=== PATIENT | female | born 1995 | race Caucasian/White ===

== ENCOUNTER 2020-08-22 18:44 | Emergency (ER) | payer OTHER, SELFPAY ==
--- NOTE | ~2020-08-22 | US_ITS ---
EXAMINATION: US OB <=14 wk fetus w TV DATE: 08/22/2020 21:01 INDICATION: Pelvic pain with positive hCG test TECHNIQUE: Real-time pelvic ultrasound utilizing both a transvaginal and transabdominal probe was pe rformed. The interpreting radiologist was not present for the study. COMPARISON: None. FINDINGS: The uterus measures 9.8 x 5.4 x 6.9 cm. The endometrial complex measures approximately 15 mm in thick ness. No evident intrauterine gestational sac. Suggestion of a section scar along the anteri or wall of the lower uterine segment. 6 mm nabothian cyst at the cervix. The left and right ovaries a re not visualized. No abnormal mass identified at the left or right adnexa. There is no free fluid in the pelvis. IMPRESSION: 1. No evident intrauterine gestational sac. Differential would include early, failed or nonvisualized ectopic . Reviewed, dictated and finalized at location A. IMPRESSION: 1. No evident intrauterine gestational sac. Differential would include early, f jenna or nonvisualized ectopic .
[2020-08-22 18:46] VITALS: BP 145/79; PULSE 90; RESP 20; TEMP 36.7; O2SAT 100
[2020-08-22] MEDS: SODIUM CHLORIDE 0.9% IV 1,000 ML 999 ML IV CONT ×2 (19:23→21:45)
[2020-08-22 19:25] LABS: Add Urine Microscopic? YES; Appearance Urine Clear (Clear); Bilirubin Urine Negative (Negative); Blood Urine Negative (Negative); Color Urine Straw (Yellow); Glucose Urine UA 3+ mg/dL (Negative); Ketones Urine Negative (Negative); Leukocyte Esterase Ur Negative LEU/UL (Negative); Nitrate Urine Negative (Negative); Protein Urine Negative (Negative); RBC Urine 0-2 /hpf (0-2); Squamous Epithelial Cell Urine Rare /hpf (Few); Urobilinogen Urine Negative mg/dL (<2.0); WBC Urine 0-3 /hpf
--- NOTE | 2020-08-22 19:28 | PC.NURSE ---
Patient's bedside glucose is 320, ERP notified.
[2020-08-22 19:29] LABS: Glucose Point of Care 320 mg/dl (65-105)
--- NOTE | 2020-08-22 19:29 | ED.GENADULT ---
HPI - General Adult General Chief complaint: Unspecified Stated complaint: , cramping Time Seen by Provider: 08/22/20 19:06 History of Present Illness HPI narrative: Patient is a 24-year-old female presents the emergency department with chief complaint of abdominal cramping and . The patient reports that this is her fifth reports her last menstrual period was 10 June. Patient denies any vaginal bleeding reports that she has history of diabetes and has not been compliant with taking her insulin or taking regular Accu-Cheks. Patient states that she has an appointment with an COMPUTER ENGINEER in a few weeks. The patient denies nausea vomiting reports that she has been urinating quite frequently Related Data Home Medications Medication Instructions Recorded Confirmed No Home Medications 08/22/20 08/22/20 Allergies Allergy/AdvReac Type Severity Reaction Status Date / Time No Known Allergies Allergy Unknown Verified 08/22/20 18:49 Review of Systems Review of Systems: Narrative: A 10 system review of systems was completed on the patient and is negative except for what is stated in the HPI. Nursing and ancillary documentation was reviewed. [facility] Social History Social History Gender identity (if verbalized by the patient): Female Comments Past medical history significant for insulin-dependent diabetes Social history the patient denies illicit drug use Exam Narrative: Exam Narrative: GENERAL: Well-appearing, well-nourished, and in no acute distress. HEAD: Normocephalic, atraumatic. EYES: PERRLA and EOMI. ENT: Nares clear, no rhinorrhea or epistaxis. Mucous membranes moist. NECK: Supple. CHEST: Clear to auscultation. No respiratory distress. HEART: Regular rate and rhythm. No murmur heard. Normal peripheral pulses. ABDOMEN: Soft, nontender, nondistended, normal active bowel sounds. EXTREMITIES: Normal range of motion. No edema. SKIN: Warm, dry, no rash. NEURO: No focal deficits. Alert and oriented x3. PSYCH: Normal mood and affect. Course Vital Signs Vital signs: Vital Signs Temperature 36.7 C 08/22/20 18:46 Pulse Rate 90 08/22/20 18:46 Respiratory Rate 20 08/22/20 18:46 Blood Pressure 145/79 H 08/22/20 18:46 Pulse Oximetry 100 08/22/20 18:46 Temperature 36.7 C 08/22/20 18:46 Pulse Rate 70 08/22/20 21:47 Respiratory Rate 18 08/22/20 21:47 Blood Pressure 121/79 08/22/20 21:47 Pulse Oximetry 100 08/22/20 21:47 Medical Decision Making Vital Signs Vital Signs: Vital Signs Temperature 36.7 C 08/22/20 18:46 Pulse Rate 90 08/22/20 18:46 Respiratory Rate 20 08/22/20 18:46 Blood Pressure 145/79 H 08/22/20 18:46 Pulse Oximetry 100 08/22/20 18:46 Temperature 36.7 C 08/22/20 18:46 Pulse Rate 70 08/22/20 21:47 Respiratory Rate 18 08/22/20 21:47 Blood Pressure 121/79 08/22/20 21:47 Pulse Oximetry 100 08/22/20 21:47 Lab Data Result diagrams: 08/22/20 19:26 08/22/20 19:26 Labs: Lab Results 08/22/20 08/22/20 08/22/20 Range/Units 19:16 19:26 19:26 WBC (4.5-10.0) K/mm3 RBC (4.2-5.4) M/mm3 Hgb (12.0-15.0) g/dL Hct (37.0-47.0) % MCV (80-100) fl MCH (26-34) pg MCHC (32-36) g/dl RDW (11.5-14.5) % Plt Count (150-375) k/mm3 MPV (7.4-10.4) fl Immature Gran % (Auto) (0-0.5) % Neut % (Auto) (45.5-73.1) % Lymph % (Auto) (18.3-44.2) % [place] % (Auto) (2.6-8.5) % Eos % (Auto) (0-4.4) % Baso % (Auto) (0.2-1.2) % Lymph # (Auto) (0.9-3.2) K/mm3 [place] # (Auto) (0.1-0.6) K/mm3 Eos # (Auto) (0-0.3) K/mm3 Baso # (Auto) (0.0-0.1) K/mm3 Abs Immat Gran (auto) (0.00-0.031) K/mm3 Absolute Neuts (auto) (1.3-6.7) K/mm3 Absolute Nucleated RBC (0.0-0.012) K/mm3 Nucleated RBC % (0.0-0.2) % Sodium 139 (137-145) mmol/L Pot
[2020-08-22 19:35] LABS: Basophils Percent Auto 0.3 % (0.2-1.2); Eosinophils Absolute Auto 0.2 K/mm3 (0-0.3); Eosinophils Percent Auto 2.4 % (0-4.4); Hematocrit 38.6 % (37.0-47.0); Hemoglobin 12.3 g/dL (12.0-15.0); Immature Granulocyte Absolute 0.01 K/mm3 (0.00-0.031); Immature Granulocyte Percent A 0.1 % (0-0.5); Lymphocytes Absolute Auto 2.96 K/mm3 (0.9-3.2); Lymphocytes Percent Auto 39.4 % (18.3-44.2); Mean Corpuscular HGB Conc 31.9 g/dl (32-36); Mean Corpuscular Hemoglobin 26.2 pg (26-34); Mean Corpuscular Volume 82.1 fl (80-100); Mean Platelet Volume 9.8 fl (7.4-10.4); Monocytes Absolute Auto 0.5 K/mm3 (0.1-0.6); Monocytes Percent Auto 6.7 % (2.6-8.5); Neutrophils Absolute Auto 3.8 K/mm3 (1.3-6.7); Neutrophils Percent Auto 51.1 % (45.5-73.1); Platelet Count Result 265 k/mm3 (150-375); White Blood Count 7.5 K/mm3 (4.5-10.0)
[2020-08-22 19:37] LABS: Specific Grav Ur 1.032 (1.001-1.035)
[2020-08-22 19:43] LABS: Alanine Aminotransferase 16 U/L (4-35); Albumin Level 3.6 g/dL (3.5-5.1); Alkaline Phosphatase 100 U/L (38-126); Anion Gap 10 mmol/L (8-16); Aspartate Amino Transferase 23 U/L (14-36); Bilirubin,Total 0.3 mg/dL (0.2-1.3); Blood Urea Nitrogen 13 mg/dL (7-17); Calcium 8.8 mg/dL (8.4-10.2); Carbon Dioxide 20 mmol/L (22-30); Chloride 109 mmol/L (98-107); Estimated CRCL calculation 162 ml/min; Estimated Glomerular Filt Rate > 60; Glucose 339 mg/dL (65-105); Potassium 4.1 mmol/L (3.4-5.0); Sodium 139 mmol/L (137-145)
--- NOTE | 2020-08-22 20:46 | PC.NURSE ---
Patient taken to US via stretcher.
[2020-08-22 21:36] LABS: Glucose Point of Care 286 mg/dl (65-105)
[2020-08-22 21:47] VITALS: BP 121/79; PULSE 70; RESP 18; O2SAT 100
--- NOTE | 2020-08-22 23:04 | PC.NURSE ---
Patient's bedside glucose is 235.
[2020-08-22 23:06] LABS: Glucose Point of Care 235 mg/dl (65-105)
[2020-08-22 23:12] VITALS: BP 106/51; PULSE 72; RESP 20; TEMP 36.6; O2SAT 100
== END 2020-08-22 23:14 | disposition home or self-care (01) ==
PROVIDERS: Emergency Medicine Emergency Medical Services; Emergency Provider Emergency Medicine
DX: O26.891 Other specified pregnancy related conditions, first trimester (principal); R10.9 Unspecified abdominal pain; O24.311 Unspecified pre-existing diabetes mellitus in pregnancy, first trimester; E11.65 Type 2 diabetes mellitus with hyperglycemia; Z91.14 Patient's other noncompliance with medication regimen; Z3A.00 Weeks of gestation of pregnancy not specified
CPT/HCPCS: 36415; 76801; 76817; 80053; 81001; 81025; 81479; 82948; 84702; 85025; 85461; 86850; 86870; 86880; 86900; 86901; 86902; 86971; 96360; 96361; 99284; J7030

== ENCOUNTER 2020-08-24 12:50 | Outpatient (CLI) | payer OTHER, SELFPAY ==
[2020-08-24 13:41] LABS: Beta HCG Quantitative 211.51 mIU/ML
== END 2020-08-24 12:51 | disposition home or self-care (01) ==
PROVIDERS: Visit Provider Obstetrics & Gynecology
DX: O20.0 Threatened abortion (principal)
CPT/HCPCS: 36415; 84702

== ENCOUNTER 2020-09-08 20:33 | Emergency (ER) | payer OTHER, SELFPAY ==
--- NOTE | ~2020-09-08 | US_ITS ---
EXAMINATION: US OB <=14 wk fetus w TV EXAM DATE: 09/08/2020 23:24 INDICATION: Vaginal bleeding and . 1st trimester. TECHNIQUE: Pelvic obstetrical transabdominal and transvaginal sonogram was performed by a technradha carlson. There are multiple grayscale and Doppler images available for interpretation. Comparison is made to prior examination from 08/22/2020. FINDINGS: Uterus measures 9.6 x 5.3 x 7.2 cm. There is intrauterine gestation sac with mean sac diam eter 6 mm corresponding to estimated gestational age 5 weeks 2 days, estimated date of confinement . Yolk sac is identified. There is no sonographic evidence of subchorionic hemorrhage. No f etal pole identified at this time. Right ovary not identified. In the left adnexal region there was a focal area measured at 8.2 x 5.8 x 4.6 cm which appear to be c ontained complex cystic region, area of loculated fluid but also regions of soft tissue causing some shadowing. Assuming fluid is contained, appearance is most consistent with teratoma, but other ovaria n histology, or fluid fluid with bowel and side not excludable. This region was not specifically iden tified on ultrasound from 08/22/2020. IMPRESSION: 1. Early intrauterine gestation sac. Could not confirm pole at this time. 2. Complex cystic left adnexal 8 cm region, appearance most consistent with teratoma. Other histolog y not entirely excludable. Reviewed, dictated and finalized at location A. IMPRESSION: 1. Early intrauterine gestation sac. Could not confirm pole at this time . 2. Complex cystic left adnexal 8 cm region, appearance most consistent with te ratoma. Other histology not entirely excludable.
[2020-09-08 20:35] VITALS: BP 147/97; PULSE 100; RESP 18; TEMP 36.7; O2SAT 99
--- NOTE | 2020-09-08 20:58 | PC.NURSE ---
Attempt to collect labs x3 between this RN and MAYA Kiser. Sticks unsuccessful. Awaiting room availability.
--- NOTE | 2020-09-08 21:09 | ED.GENADULT ---
HPI - General Adult General Chief complaint: Vaginal Bleeding Stated complaint: bleeding, Time Seen by Provider: 09/08/20 21:05 Source: RN notes reviewed History of Present Illness HPI narrative: Patient presents emergency department from home for vaginal bleeding. Patient G5, P2 approximately 7 weeks states he began to have some vaginal spotting last night became heavier today. States is associated with lower abdominal cramping. Patient is currently followed by Dr. Champagne. She denies any fevers or chills, chest pain shortness of breath or any other symptoms. States she has taken no medication for the symptoms. Patient states she does have a history of 2 previous miscarriages. Patient did have ultrasound earlier in August that did not show a definitive intrauterine has not had an ultrasound since that Related Data Home Medications Medication Instructions Recorded Confirmed fluoxetine mg 09/08/20 09/08/20 insulin glargine [Lantus Solostar SUBCUT 09/08/20 U-100 Insulin] insulin lispro [Humalog KwikPen unit SUBCUT 09/08/20 Insulin] metoclopramide HCl 09/08/20 Allergies Allergy/AdvReac Type Severity Reaction Status Date / Time No Known Allergies Allergy Unknown Verified 09/08/20 20:40 Review of Systems Review of Systems: Narrative: Gen.: Denies fevers or chills ENT: Denies congestion Respiratory: Denies shortness of breath or cough CV: Denies chest pain or palpitations GI: Reports lower abdominal cramping denies any nausea or vomiting see HPI Musculoskeletal: Denies back pain or muscle pain Neuro: Denies numbness, tingling, weakness or focal weakness Skin: Denies rash Except as documented, all other systems reviewed and negative [facility] Past Medical History Medical History (Updated 09/08/20 @ 23:25 by Pete Coffman DO) Patient denies significant medical history Social History Social History (Updated 09/08/20 @ 21:09 by Pete Coffman DO) Smoking status: Never smoker Gender identity (if verbalized by the patient): Female Exam Narrative: Exam Narrative: APPEARANCE: No acute distress, nontoxic, resting in bed HEENT: Normocephalic, atraumatic, OMM RESPIRATORY: No respiratory distress, clear to auscultation bilaterally with no rhonchi wheezing or rales CARDIOVASCULAR: RRR s murmur ABDOMINAL: Soft nondistended mild tenderness right lower quadrant left lower quadrant no tenderness right upper quadrant left upper quadrant no rebound or guarding MUSCULOSKELETAl: Moves all extremities. No clubbing, cyanosis or edema. NEURO: Awake and alert. Following commands, speech normal, no focal deficits SKIN:: Warm, dry. Normal Color PSYCHIATRIC: Normal affect/mood Course Course Emergency Course: Reviewed old records patient with O+ blood type from 08/22/2020 Discussed with patient ultrasound states she does have a history of a dermoid cyst Discussed Dr. Champagne presentation work-up agrees with plan for discharge to follow-up as an outpatient Discussed with patient results of workup and diagnosis. Discussed need for follow-up with primary care, proper use of medication, and reasons to return to the emergency department. Patient understands and agrees to current treatment plan Vital Signs Vital signs: Vital Signs Temperature 98.1 F 09/08/20 20:35 Pulse Rate 100 09/08/20 20:35 Respiratory Rate 18 09/08/20 20:35 Blood Pressure 147/97 H 09/08/20 20:35 Pulse Oximetry 99 09/08/20 20:35 Temperature 98.1 F 09/08/20 20:35 Pulse Rate 100 09/08/20 20:35 Respiratory Rate 18 09/08/20 20:35 Blood Pressure 147/97 H 09/08/20 20:35 Pulse Oximetry 99 09/08/20 20:35 Medical Decision Making Vital Signs Vital Signs: Vital Signs Temperature 98.1 F 09/08/20 20:35 Pulse Rate 100 09/08/20 20:35 Respiratory Rate 18 09/08/20 20:35 Blood Pressure 147/97 H 09/08/20 20:35 Pulse Oximetry 99 09/08/20 20:35 Temperature 98.1 F 09/08/20 20:3
[2020-09-08] MEDS: ACETAMINOPHEN 500 MG TABLET 1000 MG PO (21:20)
[2020-09-08 21:57] LABS: Basophils Percent Auto 0.4 % (0.2-1.2); Eosinophils Absolute Auto 0.2 K/mm3 (0-0.3); Eosinophils Percent Auto 1.6 % (0-4.4); Hematocrit 41.8 % (37.0-47.0); Hemoglobin 13.8 g/dL (12.0-15.0); Immature Granulocyte Absolute 0.04 K/mm3 (0.00-0.031); Immature Granulocyte Percent A 0.4 % (0-0.5); Lymphocytes Absolute Auto 3.26 K/mm3 (0.9-3.2); Lymphocytes Percent Auto 31.9 % (18.3-44.2); Mean Corpuscular Volume 78.7 fl (80-100); Mean Platelet Volume 9.4 fl (7.4-10.4); Monocytes Absolute Auto 0.6 K/mm3 (0.1-0.6); Monocytes Percent Auto 5.5 % (2.6-8.5); Neutrophils Absolute Auto 6.2 K/mm3 (1.3-6.7); Neutrophils Percent Auto 60.2 % (45.5-73.1); Platelet Count Result 331 k/mm3 (150-375); Red Blood Count 5.31 M/mm3 (4.2-5.4); Red Cell Distribution Width 15.4 % (11.5-14.5); White Blood Count 10.2 K/mm3 (4.5-10.0)
[2020-09-08 23:53] VITALS: BP 140/89; PULSE 88; RESP 18; O2SAT 99
== END 2020-09-08 23:49 | disposition home or self-care (01) ==
PROVIDERS: Emergency Provider Emergency Medicine
DX: O20.0 Threatened abortion (principal); Z3A.01 Less than 8 weeks gestation of pregnancy; O24.911 Unspecified diabetes mellitus in pregnancy, first trimester; Z79.4 Long term (current) use of insulin
CPT/HCPCS: 36415; 76801; 76817; 84702; 85025; 99284; A9270

== ENCOUNTER 2020-10-16 08:37 | Outpatient (RCR) | payer OTHER, SELFPAY ==
[2020-10-14 16:35] LABS: Beta HCG Quantitative 54.31 mIU/ML
[2020-10-16 09:33] LABS: Beta HCG Quantitative 42.96 mIU/ML
== END 2021-01-12 23:59 | disposition home or self-care (01) ==
LOC: ANHLAB 08:37
PROVIDERS: PCP Obstetrics & Gynecology; Visit Provider Obstetrics & Gynecology
DX: O20.0 Threatened abortion (principal); Z3A.01 Less than 8 weeks gestation of pregnancy
CPT/HCPCS: 36415; 84702

== ENCOUNTER → 2020-10-23 01:03 | Outpatient (CLI) | payer OTHER, SELFPAY ==
[2020-10-23 17:52] LABS: SARS-CoV-2 RNA PCR Positive
== END ==
PROVIDERS: PCP Obstetrics & Gynecology; Visit Provider Obstetrics & Gynecology
DX: U07.1 COVID-19 (principal)
CPT/HCPCS: C9803; U0003; U0005

== ENCOUNTER 2020-10-27 00:43 | Day surgery (SDC) | payer OTHER, SELFPAY ==
--- NOTE | 2020-10-27 07:16 | SUR.PREOP ---
0716- PRE DR. LAM, PT DOES NOT NEED A BMP DAY OF SURGERY. RECHECK BLOOD SUGAR IN PRE OP.
--- NOTE | 2020-10-27 08:43 | WPDHPUPDATE1 ---
History and Physical Update Update Date/Time: 10/27/20 08:43 History and Physical has been reviewed, including an updated exam of the patient. There are NO changes in the patient's condition. Risks, benefits, and alternatives have been discussed and questions answered. Patient agrees to proceed with procedure.
--- NOTE | 2020-10-27 08:47 | WPDANESEPPF ---
Anes - Initial Pre Proc Eval Procedure: Operation Date: 10/27/20 09:30 Proposed Procedures p Suction Dilation and Curettage - Elham Champagne MD Date/Time: 10/27/20 08:47 Surgeon: Elham Champagne MD Pre Op Diagnosis: incomplete miscarriage Patient Data Age: 24 Gender: F Height: Weight: Allergies Allergy/AdvReac Type Severity Reaction Status Date / Time No Known Allergies Allergy Unknown Verified 09/08/20 20:40 Home Medications Medication Instructions Recorded Confirmed Type fluoxetine 20 mg PO DAILY 09/08/20 10/25/20 History insulin glargine [Lantus Solostar 20 unit SUBCUT HS 09/08/20 10/25/20 History U-100 Insulin] insulin lispro [Humalog KwikPen 6 unit SUBCUT TIDWMEAL 09/08/20 10/25/20 History Insulin] metoclopramide HCl 10 mg PO TID PRN 09/08/20 10/25/20 History oxycodone-acetaminophen 1 tablet PO Q4H PRN 10/25/20 10/25/20 History Patient hx anesthesia problems: none Family hx anesthesia problems: none PMF Past Medical History Medical History Diabetes Obesity Smoker Social History Social History (Updated 09/08/20 @ 21:09 by Pete Coffman DO) Smoking packs per day: 0.5 Smoking cigarettes per day: 10.0 Years smoked: 1 Smoking pack-years: 0.50 Smoking status: Current some day smoker Tobacco type: e-cigarettes/vaping Alcohol intake: never Last use: 2018 Living arrangements: with family Gender identity (if verbalized by the patient): Female Sexual Orientation (if Verbalized by the Patient): Straight or Heterosexual Spiritual care concerns: No Anes - Eval Final PreProcedure Day of Procedure 10/27/20 08:47 Patient weight: obese Heart: regular rate and rhythm Lungs: clear to auscultation and normal air movement Airway: Mallampati scale class II Neurological: alert and oriented Last oral intake: >/= 8 hours ASA classification: III Emergent: no Anesthetic plan: proceed Anesthesia type and monitoring: general GIVS Informed Consent: The patient's anesthetic plan and its attendant risks and benefits were discussed with the patient/family/POA. Questions were solicited and answers provided to the satisfaction of the patient/family/POA.
[2020-10-27] MEDS: LACTATED RINGERS 1,000 ML 30 ML IV CONT (09:15)
[2020-10-27] MEDS: ACETAMINOPHEN 500 MG TABLET 1000 MG PO (09:18)
--- NOTE | 2020-10-27 09:19 | SUR.PREOP ---
0919- REVIEWED PT BLOOD SUGAR OF [address] LAM. HE IS AWARE, NO ORDERS GIVEN
[2020-10-27 09:21] VITALS: BP 124/75; PULSE 80; TEMP 35.9; O2SAT 98
[2020-10-27 09:51] VITALS: BP 146/86; PULSE 77; RESP 16; O2SAT 100
--- NOTE | 2020-10-27 09:53 | P.OP_ITS ---
Procedure Note - Detailed Date of Procedure 10/27/20 Pre-op Diagnosis incomplete miscarriage Post-op Diagnosis same Procedure Performed Suction D&C Surgeon Elham Champagne MD Anesthesia MAC Indications missed Findings normal-appearing vulva vagina and cervix to. Moderate amount of products conception within the uterus. 8 cm uterus Description of Procedure the patient was taken the operating room. She was prepped and draped in dorsal lithotomy position after induction of mac anesthesia. A speculum was placed in the vagina. Cervix grasped with tenaculum. The cervix was dilated to about 1 cm Using Valenzuela dilators. A 8. Kuwaiti curved curette was used to perform suction D&C. The curette was introduced and vacuum was applied. The curette was removed over all surfaces of the intrauterine cavity multiple times. This was done until all the surfaces were clear and had the familiar grainy texture they can be felt through the instrument. A sharp curette was then used to curettage all the surfaces. The suction cup was then reapplied 1 more time to remove any debris. The instruments were removed. The speculum and tenaculum were removed. The patient tolerated the procedure well. She was taken recovery room stable condition. Estimated Blood Loss 50 Drains No Packing No Pathology yes Complications No immediate complications Condition stable Disposition PACU
[2020-10-27] MEDS: INSULIN HUMAN REGULAR (*BKC) 100 UNITS/ML SUB-Q (10:04)
[2020-10-27 10:06] VITALS: BP 132/81; PULSE 71; O2SAT 100
[2020-10-27 10:33] VITALS: BP 131/76; PULSE 70; O2SAT 98
[2020-10-27] MEDS: ONDANSETRON INJ 4 MG/2 ML VIAL IV PUSH (10:47)
[2020-10-27 11:03] VITALS: BP 114/62; PULSE 70; O2SAT 97
--- NOTE | 2020-10-27 11:10 | SUR.PHASEII ---
1110- SPOKE WITH PT ABOUT ELEVATED BLOOD SUGAR. RECHECKED IN OUT PT, 343. PT STATED SHE WILL CHECK HER BLOOD SUGAR AFTER SHE EATS TODAY AND TREAT NEEDED. STATED SHE WILL MAKE A APPOINTMENT WITH ENDOCRINE MD SOON.
[2020-10-27 11:27] LABS: Glucose Point of Care 343 mg/dl (65-105)
[2020-10-27 11:27] LABS: Glucose Point of Care 366 mg/dl (65-105)
== END 2020-10-27 11:35 | disposition home or self-care (01) ==
PROVIDERS: Visit Provider Obstetrics & Gynecology
PROC: (CPT 59812; principal; 2020-10-27 09:30)
DX: O03.4 Incomplete spontaneous abortion without complication (principal); E11.9 Type 2 diabetes mellitus without complications; Z79.4 Long term (current) use of insulin; F17.290 Nicotine dependence, other tobacco product, uncomplicated
CPT/HCPCS: 59812; 82948; 88305; A9270; J1815; J2250; J2405; J2704; J3010; J7120

== ENCOUNTER 2021-01-17 12:20 | Outpatient (CLI) | payer MEDICAID, SELFPAY ==
[2021-01-17 13:20] LABS: Anion Gap 9 mmol/L (8-16); Blood Urea Nitrogen 9 mg/dL (7-17); Calcium 9.2 mg/dL (8.4-10.2); Carbon Dioxide 24 mmol/L (22-30); Chloride 103 mmol/L (98-107); Estimated Glomerular Filt Rate > 60; Glucose 343 mg/dL (65-110); Potassium 3.9 mmol/L (3.4-5.0); Sodium 136 mmol/L (137-145)
--- NOTE | 2021-01-17 14:30 | ECG_ITS ---
Measurements Intervals [place] Rate: 65 P: -7 [place]: 168 QRS: 42 QRSD: 105 T: 19 QT: 385 QTc: 403 Interpretive Statements SINUS RHYTHM BORDERLINE R WAVE PROGRESSION, ANTERIOR LEADS BORDERLINE T WAVE ABNORMALITY- ANTERIOR LEADS BORDERLINE ECG Electronically Signed On 01-17-2021 12:44:27 CLINICAL BIOCHEMICAL GENETICIST by Jem Forde D.O.
== END 2021-01-17 12:21 | disposition home or self-care (01) ==
PROVIDERS: Anesthesiology; PCP Physician Assistant; Visit Provider Obstetrics & Gynecology
DX: Z01.818 Encounter for other preprocedural examination (principal); E11.9 Type 2 diabetes mellitus without complications
CPT/HCPCS: 36415; 80048; 93005

== ENCOUNTER 2021-01-19 01:10 | Day surgery (SDC) | payer MEDICAID, SELFPAY ==
[2021-01-14 14:47] VITALS: BMI 43.9
--- NOTE | 2021-01-14 15:01 | PC.NURSE ---
Report to the Outpatient Waiting Room, entrance under the green pavilion located off [facility], at time 6:00 on date 01/19/21. OR Time: 7:30. - You and your visitor will be asked a series of questions to screen for COVID 19 for your protection. - A mask is required within the hospital. - Only one visitor is allowed at this time. Patient visitors will be guided where to wait when not with patient. Preoperative COVID Testing Requirements: No COVID Test needed if: (proof is required; if not received patient will have Rapid Test prior to entry) - Patient has received COVID Vaccine at least 14 days prior to procedure date or - Patient has positive COVID test result within last 90 days of surgery date. COVID Test needed if above criteria is not met If not COVID vaccinated a COVID test must be conducted within 72 hours of surgery and patient is asked to isolate self from time of testing until procedure. You will go to the [facility] for your COVID testing. The [facility] is located at the corner of [address] [facility]. You will only be called if COVID results are positive and your surgeon may reschedule your elective surgery date. Patients may have clear liquids (water, carbonated beverages, clear teas, apple juice) until 3 hours prior to surgery with a maximum of 20 ounces. - No food from midnight until time of surgery - Infants may have breast milk until 4 hours before surgery, infant formula 6 hours prior to surgery. - Children will be allowed to drink immediately following surgery. If applicable, please bring a bottle or sippy cup to assist with drinking. Juice, water, soda, and popsicles are readily available. For infants on formula, please bring formula the day of surgery. Pacifiers are allowed. Take the following medications with a SIP of water the morning of surgery: FLUOXETINE, PAIN PILL (IF NEEDED) Medications to discontinue per physician: VITAMINS/SUPPLEMENTS Date to take last dose: 3 DAYS PRE-OP Please no make-up, nail armenian, hairspray, perfume, deodorant, or body powder the day of surgery. No jewelry (including any body piercings) or valuables the day of surgery, leave them at home. Please take a shower or bath the night before, or the morning of, surgery with an antibacterial soap. Wear comfortable, loose fitting clothing. Children are encouraged to wear pajamas. - Jewelry must be removed prior to entering the operating room. Rings and piercings that are not removed may be cut off. - The hospital will not accept responsibility for valuables. - Please leave all valuables, including medications, at home the day of surgery. If you are going home after surgery, a licensed truck driver must drive you home. - NO public transportation without another adult. - We recommend that an adult stay with you for 24 hours following discharge. - We also recommend that you do not drive, make important decision, drink alcoholic beverages, or take any drugs that were not prescribed by your health care provider for at least 24 hours after your discharge time. For Pediatric surgeries, we recommend two adults accompany the child home (only one inside the building at this time). Follow any additional instructions given to you from your surgeon. Telephone instructions given to JASPREET MCKEE and asked if any additional questions and then verbalized understanding. Patient advised to call surgeon office or pre surgery nurse liaison [phone] if any additional questions.
[2021-01-19] VITALS (11 sets, daily range): BP systolic 96–112; BP diastolic 57–77; PULSE 63–79; RESP 14–20; TEMP 36.2–36.7; O2SAT 92–100
[2021-01-19] MEDS: LACTATED RINGERS 1,000 ML 30 ML IV CONT (06:45)
[2021-01-19] MEDS: KETOROLAC 15 MG/ML VIAL (*BKC) IV PUSH (06:47)
[2021-01-19] MEDS: ACETAMINOPHEN 500 MG TABLET 1000 MG PO (06:47)
[2021-01-19 06:50] LABS: Glucose Point of Care 296 mg/dl (65-105)
--- NOTE | 2021-01-19 07:18 | WPDHPUPDATE1 ---
History and Physical Update Update Date/Time: 01/19/21 07:18 History and Physical has been reviewed, including an updated exam of the patient. There are NO changes in the patient's condition. Risks, benefits, and alternatives have been discussed and questions answered. Patient agrees to proceed with procedure.
--- NOTE | 2021-01-19 07:19 | P.PNAN_ITS ---
Anes - Initial Pre Proc Eval Procedure: Operation Date: 01/19/21 07:30 Proposed Procedures p Laparoscopic Left Ovarian Cystectomy - Elham Champagne MD Date/Time: 01/19/21 07:19 Surgeon: Elham Champagne MD Pre Op Diagnosis: dermoid cyst Patient Data Age: 25 Gender: F Height: 1.57 m Weight: 108.8 kg Last Vital Signs Temp 36.2 C L 01/19/21 06:29 Pulse 78 01/19/21 06:29 Resp 18 01/19/21 06:29 BP 100/75 01/19/21 06:29 Pulse Ox 99 01/19/21 06:29 Allergies Allergy/AdvReac Type Severity Reaction Status Date / Time No Known Allergies Allergy Unknown Verified 01/19/21 06:34 Home Medications Medication Instructions Recorded Confirmed Type fluoxetine 20 mg PO DAILY 09/08/20 01/19/21 History insulin glargine [Lantus Solostar 30 unit SUBCUT HS 09/08/20 01/19/21 History U-100 Insulin] insulin lispro [Humalog KwikPen 6 - 8 unit SUBCUT TIDWMEAL 09/08/20 01/19/21 History Insulin] metoclopramide HCl 10 mg PO TID PRN 09/08/20 01/19/21 History oxycodone-acetaminophen 1 tablet PO Q4H PRN 10/25/20 01/19/21 History cholecalciferol (vitamin D3) 25 mcg PO DAILY 01/14/21 01/19/21 History [Vitamin D3] multivitamin 1 tablet PO DAILY 01/14/21 01/19/21 History Laboratory Tests 01/19/21 06:44 POC Capillary Glucose 296 mg/dl H mg/dl (65-105) Patient hx anesthesia problems: none Family hx anesthesia problems: none Results Review: All pre-operative results and documents have been reviewed as part of the pre-operative evaluation. [facility], [facility] Past Medical History Medical History Diabetes Obesity Smoker Social History Social History Smoking packs per day: 1 Smoking cigarettes per day: 20.0 Years smoked: 3 Smoking pack-years: 3.00 Smoking status: Former smoker Tobacco type: e-cigarettes/vaping Smoking end date: 03/12/18 Alcohol intake: current Alcohol use details: 2-3/MONTH Substance use: current Substance use type: marijuana Other substance usage details: SMOKE Last use: 01/13/21 Living arrangements: with family Gender identity (if verbalized by the patient): Female Sexual Orientation (if Verbalized by the Patient): Straight or Heterosexual Spiritual care concerns: No Anes - Eval Final PreProcedure Day of Procedure 01/19/21 07:19 Patient weight: morbidly obese Heart: regular rate and rhythm Lungs: decreased breath sounds Airway: Mallampati scale class II Neurological: alert and oriented Last oral intake: >/= 8 hours ASA classification: III Emergent: no Anesthetic plan: proceed Anesthesia type and monitoring: general ETT and standard monitoring Results Review: All pre-operative results and documents have been reviewed as part of the pre-operative evaluation. Informed Consent: The patient's anesthetic plan and its attendant risks and benefits were discussed with the patient/family/POA. Questions were solicited and answers provided to the satisfaction of the patient/family/POA.
[2021-01-19] MEDS: INSULIN HUMAN REGULAR (*BKC) 100 UNITS/ML 10 UNITS SUB-Q (08:32)
--- NOTE | 2021-01-19 08:50 | W.PM.PROC2 ---
Procedure Note - Detailed Date of Procedure 01/19/21 Pre-op Diagnosis dermoid cyst Post-op Diagnosis same Procedure Performed Laparoscopic left salpingo-oophorectomy. Surgeon Elham Champagne MD Anesthesia general Indications Pelvic pain Findings 8 cm left dermoid cyst with closely associated fallopian tube,, cyst under significant tension distinct area of ovary not appreciable Description of Procedure The patient was taken to the operating room. She was prepped and draped in the dorsal lithotomy position after induction general anesthesia. A 5 mm incision was made with a scalpel on the abdominal skin in the left upper quadrant of the abdomen. A 5 mm trocar was inserted into the intra-abdominal cavity under direct visualization the scope. In the same fashion a11 mm left lower quadrant trocar was inserted and a 5 mm infraumbilical trocar was inserted. The infundibulopelvic ligament on the right was isolated, cauterized and transected with LigaSure cautery. The para ovarian mesosalpinx lateral to the fallopian tube was cauterized transected in stepwise fashion around to the uterine cornua. The tube at the cornua was cauterized transected with LigaSure cautery. The suspensory ligament ovaries cauterized transected with LigaSure cautery. At that time the ovary was completely amputated and was placed in endobag and taken at the left lower quadrant trocar site. The cyst was punctured while in the bag and the fluid was prevented from home return to the abdomen. The opening of the bag was outside the abdominal wall. The pelvis was irrigated. The pneumoperitoneum was reduced. The trocars were removed. Skin was closed with subcuticular 4 micro. The patient's incisions were covered with Dermabond. She was taken recovery room in stable condition. Sponge lap and needle counts were correct x2. Estimated Blood Loss -5.0 Pathology yes Complications No immediate complications Condition stable Disposition same day
[2021-01-19] MEDS: fentaNYL CITRATE INJ (*CRX) 100 MCG/2 ML VIAL 25 MCG IV PUSH (09:03)
[2021-01-19] MEDS: oxyCODONE HCL (*CRX) 5 MG TAB IR PO (10:00)
[2021-01-19] MEDS: ONDANSETRON INJ 4 MG/2 ML VIAL IV PUSH (10:06)
[2021-01-19] MEDS: SCOPOLAMINE 1.5 MG PATCH TRANSDERM (10:35)
== END 2021-01-19 11:10 | disposition home or self-care (01) ==
PROVIDERS: PCP Physician Assistant; Visit Provider Obstetrics & Gynecology
PROC: (CPT 49320; principal; 2021-01-19 07:30)
DX: D27.1 Benign neoplasm of left ovary (principal); E11.9 Type 2 diabetes mellitus without complications; Z79.4 Long term (current) use of insulin; Z87.891 Personal history of nicotine dependence; F12.90 Cannabis use, unspecified, uncomplicated; E66.01 Morbid (severe) obesity due to excess calories; Z68.41 Body mass index [BMI] 40.0-44.9, adult
CPT/HCPCS: 58661; 82948; 88305; 88307; A9270; J1100; J1815; J1885; J2250; J2270; J2405; J2704; J2710; J3010; J7120

== ENCOUNTER 2021-08-31 22:17 | Emergency (ER) | payer MEDICAID, SELFPAY ==
--- NOTE | ~2021-08-31 | US_ITS ---
EXAMINATION: US pelvic complete w TV DATE: 09/01/2021 03:02 INDICATION: Early . Abdominal cramping. TECHNIQUE: Real-time transabdominal and transvaginal pelvic ultrasound was performed. COMPARISON: None. FINDINGS: TRANSABDOMINAL ULTRASOUND: The uterus measures 9.5 x 5.7 x 6.6 cm. TRANSVAGINAL ULTRASOUND: There is an intrauterine gestational sac with mean diameter of 10 mm, which correlates with an estimated gestational age of 5 weeks and 5 days +/- 4 days. A yolk sac is identifi ed. No pole is identified. There is a nabothian cyst in the cervix. The ovaries are not visuali zed. There is no free fluid in the pelvis. IMPRESSION: 1. Single intrauterine gestation with estimated date of delivery of 04/29/2022. Reviewed, dictated and finalized at location A.
[2021-08-31 22:49] VITALS: BP 139/88; PULSE 90; RESP 18; TEMP 36.4; O2SAT 99
[2021-08-31 23:16] LABS: Basophils Percent Auto 0.5 % (0.2-1.2); Eosinophils Absolute Auto 0.1 K/mm3 (0-0.3); Eosinophils Percent Auto 1.3 % (0-4.4); Hematocrit 44.3 % (37.0-47.0); Hemoglobin 15.5 g/dL (12.0-15.0); Immature Granulocyte Absolute 0.03 K/mm3 (0.00-0.031); Immature Granulocyte Percent A 0.3 % (0-0.5); Lymphocytes Absolute Auto 3.64 K/mm3 (0.9-3.2); Lymphocytes Percent Auto 42.3 % (18.3-44.2); Mean Corpuscular Hemoglobin 30.7 pg (26-34); Mean Corpuscular Volume 87.7 fl (80-100); Mean Platelet Volume 9.6 fl (7.4-10.4); Monocytes Absolute Auto 0.5 K/mm3 (0.1-0.6); Monocytes Percent Auto 5.9 % (2.6-8.5); Neutrophils Absolute Auto 4.3 K/mm3 (1.3-6.7); Neutrophils Percent Auto 49.7 % (45.5-73.1); Platelet Count Result 226 k/mm3 (150-375); Red Blood Count 5.05 M/mm3 (4.2-5.4); Red Cell Distribution Width 13.6 % (11.5-14.5); White Blood Count 8.6 K/mm3 (4.5-10.0)
[2021-08-31 23:17] LABS: Appearance Urine Clear (Clear); Bilirubin Urine Negative (Negative); Blood Urine Negative (Negative); Color Urine Yellow (Yellow); Glucose Urine UA 3+ mg/dL (Negative); Ketones Urine Trace mg/dL (Negative); Leukocyte Esterase Ur Negative LEU/UL (Negative); Nitrate Urine Negative (Negative); Protein Urine Negative (Negative); Specific Grav Ur 1.015 (1.001-1.035); Urobilinogen Urine 0.2 mg/dL (<2.0); pH Urine 5.5 (5.0-9.0)
[2021-08-31 23:23] LABS: Add Urine Microscopic? YES; Bacteria Urine Trace /hpf; Mucus Urine Rare /lpf; Squamous Epithelial Cell Urine Few /hpf (Few)
[2021-08-31 23:29] LABS: Alanine Aminotransferase 38 U/L (6-35); Alkaline Phosphatase 111 U/L (38-126); Anion Gap 9 mmol/L (8-16); Aspartate Amino Transferase 26 U/L (14-36); Bilirubin,Total 0.2 mg/dL (0.2-1.3); Blood Urea Nitrogen 11 mg/dL (7-17); Calcium 9.1 mg/dL (8.4-10.2); Carbon Dioxide 21 mmol/L (22-30); Chloride 104 mmol/L (98-107); Estimated CRCL calculation 203 ml/min; Estimated Glomerular Filt Rate > 60; Glucose 390 mg/dL (65-110); Lipase 69 U/L (23-300); Potassium 3.8 mmol/L (3.4-5.0); Sodium 134 mmol/L (137-145)
[2021-09-01] MEDS: INSULIN ASPART (*BKC) 100 UNITS/ML 10 UNITS SUB-Q (01:51)
--- NOTE | 2021-09-01 03:18 | ED.ABDPAIN ---
HPI - Abdominal Pain General Chief Complaint: Abdominal Pain Stated Complaint: abd cramping, 8 weeks Time Seen by Provider: 09/01/21 00:42 Source: patient Mode of arrival: ambulatory Limitations: no limitations History of Present Illness HPI narrative: 25-year-old female G7, P2 presents today with complaints of abdominal cramping rating pain 7 out of 10. Patient denies any bleeding at this point. Patient states she is about 8 weeks . Patient states she saw her OB not too long ago they did a ultrasound but were unable to confirm IUP. Patient is diabetic. Patient has an appointment with her web site administrator on Sunday concerning her high blood sugars. Related Data Home Medications Medication Instructions Recorded Confirmed fluoxetine 20 mg capsule 20 mg PO DAILY 09/08/20 01/19/21 insulin glargine 100 unit/mL (3 30 unit subcut HS 09/08/20 01/19/21 mL) subcutaneous pen (Lantus Solostar U-100 Insulin) insulin lispro 100 unit/mL 6 - 8 unit subcut TIDWMEAL 09/08/20 01/19/21 subcutaneous pen (Humalog KwikPen (U-100) Insulin) metoclopramide HCl 10 mg tablet 10 mg PO TID PRN Nausea 09/08/20 01/19/21 oxycodone-acetaminophen 10 mg-325 1 tablet PO Q4H PRN Pain 10/25/20 01/19/21 mg tablet cholecalciferol (vitamin D3) 25 25 mcg PO DAILY 01/14/21 01/19/21 mcg (1,000 unit) chewable tablet (Vitamin D3) multivitamin 1 tablet PO DAILY 01/14/21 01/19/21 Allergies Allergy/AdvReac Type Severity Reaction Status Date / Time No Known Allergies Allergy Unknown Verified 01/19/21 06:34 Review of Systems Review of Systems: CONSTITUTIONAL: Denies fever, chills, or sweats. EYES: Denies visual changes, redness, or discharge. ENT: Denies rhinorrhea, congestion, sore throat, or otalgia. CARDIOVASCULAR: Denies chest pain, palpitations, or edema. RESPIRATORY: Denies cough or dyspnea. GASTROINTESTINAL: Abdominal cramping. Denies nausea, vomiting, or diarrhea. GENITOURINARY: Denies dysuria or hematuria. SKIN: Denies rash or itching. MUSCULOSKELETAL: Denies back pain, joint pain, or myalgia. NEUROLOGIC: Denies headache, numbness, dizziness, or weakness. PSYCHIATRIC: Denies anxiety or depression. PMFSH Past Medical History Medical History Diabetes Obesity Smoker Social History Social History Smoking packs per day: 1 Smoking cigarettes per day: 20.0 Years smoked: 3 Smoking pack-years: 3.00 Smoking status: Former smoker Tobacco type: e-cigarettes/vaping Smoking end date: 03/12/18 Alcohol intake: current Alcohol use details: 2-3/MONTH Substance use: current Substance use type: marijuana Other substance usage details: SMOKE Last use: 01/13/21 Gender identity (if verbalized by the patient): Female Sexual Orientation (if Verbalized by the Patient): Straight or Heterosexual Spiritual care concerns: No Exam Narrative: GENERAL: Well-appearing, well-nourished, and in no acute distress. HEAD: Normocephalic, atraumatic. EYES: PERRLA and EOMI. ENT: Nares clear, no rhinorrhea or epistaxis. Mucous membranes moist. Oropharynx without tonsillar hypertrophy exudate or other lesions. Bilateral TMs pearly henry nonbulging NECK: Supple. No adenopathy or masses. No carotid bruits or JVD CHEST: Clear to auscultation. No respiratory distress. No wheezes rales or rhonchi HEART: Regular rate and rhythm. No murmur heard. Normal peripheral pulses. ABDOMEN: Soft, nontender, nondistended, normal active bowel sounds. EXTREMITIES: Normal range of motion. No edema. SKIN: Warm, dry, no rash. NEURO: No focal deficits. Alert and oriented x3. PSYCH: Normal mood and affect. Course Vital Signs Vital signs: Vital Signs Temperature 36.4 C L 08/31/21 22:49 Pulse Rate 90 08/31/21 22:49 Respiratory Rate 18 08/31/21 22:49 Blood Pressure 139/88 08/31/21 22:49 Pulse Oximetry 99 08/31/21 22:49 Oxygen Delivery Room Air 08/31/21 22:
[2021-09-01 04:08] VITALS: BP 119/70; PULSE 83; RESP 16; O2SAT 100
[2021-09-01 04:49] LABS: Glucose Point of Care 236 mg/dl (65-105)
== END 2021-09-01 04:53 | disposition home or self-care (01) ==
PROVIDERS: Emergency Medicine; Emergency Provider Nurse Practitioner Family; PCP Physician Assistant
DX: R10.9 Unspecified abdominal pain (principal); O24.311 Unspecified pre-existing diabetes mellitus in pregnancy, first trimester; Z3A.08 8 weeks gestation of pregnancy; E11.9 Type 2 diabetes mellitus without complications; Z79.4 Long term (current) use of insulin
CPT/HCPCS: 36415; 76830; 76856; 80053; 81001; 81025; 82948; 83690; 84702; 85025; 99284; J1815

== ENCOUNTER 2021-09-07 12:19 | Emergency (ER) | payer MEDICAID, SELFPAY ==
--- NOTE | ~2021-09-07 | US_ITS ---
EXAMINATION: US OB <=14 wk fetus w TV DATE: 09/07/2021 13:48 INDICATION: Pelvic pain and vaginal bleeding during first trimester TECHNIQUE: Real-time pelvic ultrasound utilizing both a transvaginal and transabdominal probe was pe rformed. The interpreting radiologist was not present for the study. COMPARISON: None. FINDINGS: The uterus measures 11.7 x 5.6 x 6.9 cm. There is an intrauterine gestational sac. A yolk sac and fe kiarra pole are identified. The crown rump length measures 4-5 mm, which correlates with an estimated ge stational age of 6 weeks and 1 days. heart motion is identified measuring 115 beats per minute (bpm) by M-mode Doppler. Hypoechoic region along one side of the gestational sac which measures 3.3 x 2.6 x 1.1 cm consistent with a moderate-sized subchorionic hematoma. The right and left ovaries are not visualized. There is no free fluid in the pelvis. IMPRESSION: 1. Single living fetus with heart rate of 115 bpm. 2. Gestational age by ultrasound of 6 weeks 1 day(s) +/- 4 day(s) with ultrasound estimated date of delivery (DIOMEDES) of 05/02/2022. 3. Moderate-sized subchorionic hematoma. Reviewed, dictated and finalized at location A. IMPRESSION: 1. Single living fetus with heart rate of 115 bpm. 2. Gestational age by ultrasound of 6 weeks 1 day(s) +/- 4 day(s) with ultraso und estimated date of delivery (DIOMEDES) of 05/02/2022. 3. Moderate-sized subchorionic hematoma.
[2021-09-07 12:32] VITALS: BP 134/80; PULSE 81; RESP 16; TEMP 36.6; O2SAT 99
--- NOTE | 2021-09-07 12:44 | ED.FEMALEGU ---
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 Patient reports that she has had spotting that began last night. Patient reports spotting initially brown in color, not bright red. Patient denies brisk bleeding, no significant pain. Pain is mild, aching in nature without radiation to the flanks. She reports mild abdominal fullness without fever, chills, nausea or vomiting. She denies dysuria or noted hematuria. Patient denies loss of fluids or contraction-like pain. She denies large blood clot. Patient states that she initially spoke with Dr. Bah last night who wanted her to be seen in the office today but when she called the office to schedule an appointment they referred her to our emergency department. Patient is refusing to have a pelvic exam performed. Related Data Home Medications Medication Instructions Recorded Confirmed fluoxetine 20 mg capsule 20 mg PO DAILY 09/08/20 01/19/21 insulin glargine 100 unit/mL (3 30 unit subcut HS 09/08/20 01/19/21 mL) subcutaneous pen (Lantus Solostar U-100 Insulin) insulin lispro 100 unit/mL 6 - 8 unit subcut TIDWMEAL 09/08/20 01/19/21 subcutaneous pen (Humalog KwikPen (U-100) Insulin) metoclopramide HCl 10 mg tablet 10 mg PO TID PRN Nausea 09/08/20 01/19/21 oxycodone-acetaminophen 10 mg-325 1 tablet PO Q4H PRN Pain 10/25/20 01/19/21 mg tablet cholecalciferol (vitamin D3) 25 25 mcg PO DAILY 01/14/21 01/19/21 mcg (1,000 unit) chewable tablet (Vitamin D3) multivitamin 1 tablet PO DAILY 01/14/21 01/19/21 Allergies Allergy/AdvReac Type Severity Reaction Status Date / Time No Known Allergies Allergy Unknown Verified 09/07/21 12:35 Review of Systems Review of Systems: CONSTITUTIONAL: Denies fever, chills, or sweats. EYES: Denies visual changes, redness, or discharge. CARDIOVASCULAR: Denies chest pain, palpitations, or edema. RESPIRATORY: Denies cough or dyspnea. GASTROINTESTINAL: Reports lower pelvic pain, denies nausea, vomiting, diarrhea GENITOURINARY: Denies dysuria or hematuria; reports vaginal bleeding SKIN: Denies rash or itching. MUSCULOSKELETAL: Denies back pain, joint pain, or myalgia. NEUROLOGIC: Denies headache, numbness, or weakness. [facility] Past Medical History Medical History Diabetes Obesity Smoker Social History Social History Smoking packs per day: 1 Smoking cigarettes per day: 20.0 Years smoked: 3 Smoking pack-years: 3.00 Smoking status: Former smoker Tobacco type: e-cigarettes/vaping Smoking end date: 03/12/18 Alcohol intake: current Alcohol use details: 2-3/MONTH Substance use: current Substance use type: marijuana Other substance usage details: SMOKE Last use: 01/13/21 Gender identity (if verbalized by the patient): Female Sexual Orientation (if Verbalized by the Patient): Straight or Heterosexual Spiritual care concerns: No Exam Narrative: GENERAL: Awake, alert, conversant HEAD: Normocephalic, atraumatic. EYES: PERRLA and EOMI. ENT: Nares clear, no rhinorrhea or epistaxis. Mucous membranes moist. NECK: Supple. CHEST: No respiratory distress, breathing even and non labored HEART: Regular rate, sinus rhythm ABDOMEN: Obese, distended, non tender throughout, no rebound, rigidity or guarding EXTREMITIES: Normal range of motion. No edema. SKIN: Warm, dry, no rash. NEURO:No focal deficits. Alert and oriented x3 Course Vital Signs Vital signs: Vital Signs Temperature 36.6 C 09/07/21 12:32 Pulse Rate 81 09/07/21
[2021-09-07 12:50] LABS: Basophils Percent Auto 0.4 % (0.2-1.2); Eosinophils Absolute Auto 0.1 K/mm3 (0-0.3); Eosinophils Percent Auto 1.5 % (0-4.4); Hemoglobin 15.5 g/dL (12.0-15.0); Immature Granulocyte Absolute 0.03 K/mm3 (0.00-0.031); Immature Granulocyte Percent A 0.4 % (0-0.5); Mean Corpuscular HGB Conc 34.4 g/dl (32-36); Mean Corpuscular Hemoglobin 30.5 pg (26-34); Mean Corpuscular Volume 88.6 fl (80-100); Mean Platelet Volume 9.6 fl (7.4-10.4); Monocytes Absolute Auto 0.4 K/mm3 (0.1-0.6); Monocytes Percent Auto 5.7 % (2.6-8.5); Neutrophils Absolute Auto 3.7 K/mm3 (1.3-6.7); Platelet Count Result 241 k/mm3 (150-375); Red Blood Count 5.08 M/mm3 (4.2-5.4); Red Cell Distribution Width 13.4 % (11.5-14.5); White Blood Count 6.9 K/mm3 (4.5-10.0)
[2021-09-07 13:25] LABS: Appearance Urine Clear (Clear); Bilirubin Urine Negative (Negative); Blood Urine 3+ (Negative); Color Urine Yellow (Yellow); Glucose Urine UA 3+ mg/dL (Negative); Ketones Urine Negative (Negative); Leukocyte Esterase Ur Negative LEU/UL (Negative); Nitrate Urine Negative (Negative); Protein Urine Negative (Negative); Urobilinogen Urine 0.2 mg/dL (<2.0)
--- NOTE | 2021-09-07 13:29 | PC.NURSE ---
Patient to ultrasound
[2021-09-07 13:41] LABS: Budding Yeast Urine Present /hpf; Mucus Urine Rare /lpf; RBC Urine 21-50 /hpf (0-2); Squamous Epithelial Cell Urine Moderate /hpf (Few)
[2021-09-07 13:57] LABS: Add Urine Microscopic? YES
[2021-09-07 15:02] VITALS: BP 142/74; PULSE 88; RESP 16; O2SAT 98
== END 2021-09-07 15:44 | disposition home or self-care (01) ==
PROVIDERS: Emergency Provider Emergency Medicine; PCP Obstetrics & Gynecology
DX: O46.91 Antepartum hemorrhage, unspecified, first trimester (principal); Z3A.01 Less than 8 weeks gestation of pregnancy; O36.8910 Maternal care for other specified fetal problems, first trimester, not applicable or unspecified
CPT/HCPCS: 36415; 76801; 76817; 81001; 84702; 85025; 85461; 99284

== ENCOUNTER 2021-09-11 17:11 | Emergency (ER) | payer MEDICAID, SELFPAY ==
[2021-09-11 17:14] VITALS: BP 140/85; PULSE 100; RESP 16; TEMP 36.6; O2SAT 100
[2021-09-11 17:51] VITALS: BP 122/74; PULSE 97; RESP 16; O2SAT 98
[2021-09-11 18:01] LABS: Basophils Absolute Auto 0.1 K/mm3 (0.0-0.1); Basophils Percent Auto 0.5 % (0.2-1.2); Eosinophils Absolute Auto 0.1 K/mm3 (0-0.3); Eosinophils Percent Auto 1.3 % (0-4.4); Hematocrit 48.3 % (37.0-47.0); Hemoglobin 15.9 g/dL (12.0-15.0); Immature Granulocyte Absolute 0.02 K/mm3 (0.00-0.031); Immature Granulocyte Percent A 0.2 % (0-0.5); Lymphocytes Absolute Auto 3.37 K/mm3 (0.9-3.2); Lymphocytes Percent Auto 36.8 % (18.3-44.2); Mean Corpuscular HGB Conc 32.9 g/dl (32-36); Mean Corpuscular Hemoglobin 30.2 pg (26-34); Mean Corpuscular Volume 91.8 fl (80-100); Mean Platelet Volume 9.5 fl (7.4-10.4); Monocytes Absolute Auto 0.6 K/mm3 (0.1-0.6); Monocytes Percent Auto 6.7 % (2.6-8.5); Neutrophils Percent Auto 54.5 % (45.5-73.1); Platelet Count Result 258 k/mm3 (150-375); Red Blood Count 5.26 M/mm3 (4.2-5.4); Red Cell Distribution Width 13.2 % (11.5-14.5); White Blood Count 9.2 K/mm3 (4.5-10.0)
--- NOTE | 2021-09-11 18:10 | ED.PREGNANCY ---
HPI - General Chief complaint: Vaginal Bleeding <Rachel Self PA-C - Last Filed: 09/11/21 18:51> Stated complaint: ?miscarriage <GISEL Diallo Last Filed: 09/11/21 18:51> Time Seen by Provider: 09/11/21 17:33 <GISEL Diallo Last Filed: 09/11/21 18:51> Source: patient <GISEL Diallo Last Filed: 09/11/21 18:51> Mode of arrival: EMS <GISEL Diallo Last Filed: 09/11/21 18:51> Limitations: no limitations <GISEL Diallo Last Filed: 09/11/21 18:51> History of Present Illness HPI Narrative: This is a 25-year-old female, about 7 weeks that presents to the emergency department for vaginal bleeding. Reports she has been evaluated by her OB and has been in the emergency department for this complaint. She has a known subchorionic hematoma. The bleeding became worse today and was associated with cramping which prompted her to be seen. Denies fevers. <GISEL Diallo Last Filed: 09/11/21 18:51> Related Data Home medications: Home Medications Medication Instructions Recorded Confirmed insulin glargine 100 unit/mL (3 30 unit subcut HS 09/08/20 01/19/21 mL) subcutaneous pen (Lantus Solostar U-100 Insulin) insulin lispro 100 unit/mL 6 - 8 unit subcut TIDWMEAL 09/08/20 01/19/21 subcutaneous pen (Humalog KwikPen (U-100) Insulin) [facility] 09/11/21 <GISEL Diallo Last Filed: 09/11/21 18:51> Allergies/Adverse reactions: Allergies Allergy/AdvReac Type Severity Reaction Status Date / Time No Known Allergies Allergy Unknown Verified 09/07/21 12:35 <GISEL Diallo Last Filed: 09/11/21 18:51> Review of Systems Review of Systems: CONSTITUTIONAL: Denies fever GASTROINTESTINAL: Reports pelvic cramping <Rachel Self PA-C - Last Filed: 09/11/21 18:51> All systems reviewed & are unremarkable except as noted in HPI and below <Rachel Self PA-C - Last Filed: 09/11/21 18:51> PMFSH Past Medical History Medical History: Medical History Diabetes Obesity Smoker <Rachel Self PA-C - Last Filed: 09/11/21 18:51> Social History Social History: Social History Smoking packs per day: 1 Smoking cigarettes per day: 20.0 Years smoked: 3 Smoking pack-years: 3.00 Smoking status: Former smoker Tobacco type: e-cigarettes/vaping Smoking end date: 03/12/18 Alcohol intake: current Alcohol use details: 2-3/MONTH Substance use: current Substance use type: marijuana Other substance usage details: SMOKE Last use: 01/13/21 Gender identity (if verbalized by the patient): Female Sexual Orientation (if Verbalized by the Patient): Straight or Heterosexual Spiritual care concerns: No <Rachel Self PA-C - Last Filed: 09/11/21 18:51> Exam Narrative: GENERAL: Well-appearing, well-nourished, and in no acute distress. HEAD: Normocephalic, atraumatic. EYES: EOMI. CHEST: No respiratory distress. HEART: Regular rate EXTREMITIES: Normal range of motion. No edema. SKIN: Warm, dry, no rash. NEURO: No focal deficits. Alert and oriented x3. PSYCH: Normal mood and affect PELVIC: Normal external genitalia. 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
[2021-09-11] MEDS: ACETAMINOPHEN 500 MG TABLET 1000 MG PO (18:31)
== END 2021-09-11 19:12 | disposition home or self-care (01) ==
PROVIDERS: Physician Assistant; Emergency Provider Emergency Medicine; PCP Obstetrics & Gynecology
DX: O20.0 Threatened abortion (principal); O99.211 Obesity complicating pregnancy, first trimester; E66.9 Obesity, unspecified; O24.911 Unspecified diabetes mellitus in pregnancy, first trimester; Z3A.01 Less than 8 weeks gestation of pregnancy; Z79.4 Long term (current) use of insulin; Z87.891 Personal history of nicotine dependence
CPT/HCPCS: 36415; 84702; 85025; 85461; 99284; A9270

== ENCOUNTER 2022-06-13 23:27 | Emergency (ER) | payer MEDICAID, SELFPAY ==
[2022-06-13 23:31] VITALS: BP 135/87; PULSE 81; RESP 18; TEMP 36.2; O2SAT 100
[2022-06-14 01:30] VITALS: BP 117/83; PULSE 75; RESP 20; O2SAT 98
[2022-06-14 01:32] LABS: Basophils Absolute Auto 0.1 K/mm3 (0.0-0.1); Basophils Percent Auto 0.5 % (0.2-1.2); Eosinophils Absolute Auto 0.1 K/mm3 (0-0.3); Eosinophils Percent Auto 1.2 % (0-4.4); Hematocrit 46.2 % (37.0-47.0); Hemoglobin 16.5 g/dL (12.0-15.0); Immature Granulocyte Absolute 0.03 K/mm3 (0.00-0.031); Immature Granulocyte Percent A 0.3 % (0-0.5); Lymphocytes Absolute Auto 4.19 K/mm3 (0.9-3.2); Lymphocytes Percent Auto 37.2 % (18.3-44.2); Mean Corpuscular HGB Conc 35.7 g/dl (32-36); Mean Corpuscular Hemoglobin 31.6 pg (26-34); Mean Corpuscular Volume 88.5 fl (80-100); Mean Platelet Volume 9.5 fl (7.4-10.4); Monocytes Absolute Auto 0.6 K/mm3 (0.1-0.6); Monocytes Percent Auto 5.6 % (2.6-8.5); Neutrophils Absolute Auto 6.2 K/mm3 (1.3-6.7); Neutrophils Percent Auto 55.2 % (45.5-73.1); Platelet Count Result 283 k/mm3 (150-375); Red Blood Count 5.22 M/mm3 (4.2-5.4); Red Cell Distribution Width 12.8 % (11.5-14.5); White Blood Count 11.3 K/mm3 (4.5-10.0)
--- NOTE | 2022-06-14 01:40 | ED.GENADULT ---
HPI - General Adult General Chief complaint: Vaginal Bleeding Stated complaint: vaginal bleeding, 10 wks preg Time Seen by Provider: 06/14/22 00:49 History of Present Illness HPI narrative: this is a 26-year-old @ 10 weeks gestation presenting to ED with chief complaint of vaginal bleeding. Patient has been bleeding for 5 days. Started out as spotting has been getting progressively worse. Patient has gone through 1 heavy pad today. She denies any other complaints. She has been having some intermittent abdominal cramping, But is not currently experience abdominal pain. She denies any other complaints. Related Data Home Medications Medication Instructions Recorded Confirmed insulin glargine 100 unit/mL (3 30 unit subcut HS 09/08/20 01/19/21 mL) subcutaneous pen (Lantus Solostar U-100 Insulin) insulin lispro 100 unit/mL 6 - 8 unit subcut TIDWMEAL 09/08/20 01/19/21 subcutaneous pen (Humalog KwikPen (U-100) Insulin) [facility] 09/11/21 Allergies Allergy/AdvReac Type Severity Reaction Status Date / Time No Known Allergies Allergy Unknown Verified 06/13/22 23:27 [facility] Past Medical History Medical History Diabetes Obesity Smoker Social History Social History Smoking packs per day: 1 Smoking cigarettes per day: 20.0 Years smoked: 3 Smoking pack-years: 3.00 Smoking status: Former smoker Tobacco type: e-cigarettes/vaping Smoking end date: 03/12/18 Alcohol intake: current Alcohol use details: 2-3/MONTH Substance use: current Substance use type: marijuana Other substance usage details: SMOKE Last use: 01/13/21 Living arrangements: with family Gender identity (if verbalized by the patient): Female Sexual Orientation (if Verbalized by the Patient): Straight or Heterosexual Spiritual care concerns: No Exam Narrative: APPEARANCE: No apparent distress. Head: atraumatic. EYES: EOMI, NOSE: Atraumatic NECK: Trachea midline RESPIRATORY: No increased rate of breathing clear to auscultation CARDIOVASCULAR: RRR, ABDOMINAL: Obese, soft nontender no guarding or rebound MUSCULOSKELETAl: No obvious deformities NEURO: Alert. Moving 4/4 extremities SKIN:: Warm, dry. Normal color PSYCHIATRIC: Normal affect Course Vital Signs Vital signs: Vital Signs Temperature 97.2 F L 06/13/22 23:31 Pulse Rate 81 06/13/22 23:31 Respiratory Rate 18 06/13/22 23:31 Blood Pressure 135/87 06/13/22 23:31 Pulse Oximetry 100 06/13/22 23:31 Oxygen Delivery Room Air 06/13/22 23:31 Temperature 97.2 F L 06/13/22 23:31 Pulse Rate 81 06/13/22 23:31 Respiratory Rate 18 06/13/22 23:31 Blood Pressure 135/87 06/13/22 23:31 Pulse Oximetry 100 06/13/22 23:31 Oxygen Delivery Room Air 06/13/22 23:31 Medical Decision Making MDM Narrative Medical decision making narrative: -Presentation: @ 10 weeks presenting with vaginal bleeding. TVUS ordered to eval for miscarriage/ectopic. -DDX includes but is not limited to:Miscarriage, vaginal bleeding in -Co-morbidities complicating care: obesity, frequent miscarriages -Social determinants of health: patient works as is for the [employer], lives with her boyfriend Yony -External Chart Review: none -Hx from independent Sources: Yony @ bedside -Discussion of Management/Consultants: None -Independent interpretation of studies: CBC was within normal limits. Beta-hCG was 55,000. Dx tests considered but not ordered: None -Procedures: none -Interventions: none -Shared decision making / Disposition: physics technical officer was called in for to rule out ectopic. Patient stated that she wanted to leave. The tech had already arrived at the hospital we convinced the patient to get the transvaginal ultrasound. However when the patient found out that the tech would not be able to tell her
[2022-06-14 02:30] VITALS: BP 115/68; PULSE 75; RESP 21; O2SAT 97
[2022-06-14 03:00] VITALS: BP 112/78; PULSE 76; RESP 20; O2SAT 97
--- NOTE | 2022-06-14 03:30 | PC.NURSE ---
PT. called RN into room. pt. states That [employer] was rude as hell. I want to go home. You don't talk to patients like that. RN asked pt. if she was willing to sign AMA paperwork. pt. states No just take my IV out. PT. ambulated out of ed w/ steady gait. pt. did not sign ama paper work, or get discharge VS.
== END 2022-06-14 03:30 | disposition left against medical advice (07) ==
PROVIDERS: Emergency Provider Emergency Medicine; PCP Obstetrics & Gynecology
DX: O20.0 Threatened abortion (principal); O24.112 Pre-existing type 2 diabetes mellitus, in pregnancy, second trimester; O99.211 Obesity complicating pregnancy, first trimester; E66.9 Obesity, unspecified; Z3A.10 10 weeks gestation of pregnancy; Z87.891 Personal history of nicotine dependence; Z79.4 Long term (current) use of insulin
CPT/HCPCS: 36415; 81025; 84702; 85025; 85461; 86850; 86900; 86901; 99283

== ENCOUNTER 2023-09-18 10:46 | Emergency (ER) | payer OTHER, SELFPAY ==
[2023-09-18 10:56] VITALS: BP 151/107; PULSE 84; RESP 20; TEMP 36.4; O2SAT 98
--- NOTE | 2023-09-18 11:23 | ED.EXTPRO ---
HPI - Extremity Problem General Chief complaint: Extremity Problem,Nontraumatic Stated complaint: infected fingernail Time Seen by Provider: 09/18/23 11:19 History of Present Illness HPI Narrative: 27-year-old female history of diabetes presents to the emergency room for evaluation of infection to my right index finger. Patient states for a couple of days she has noticed swelling, redness, pain to the site of her fingernail. Has been soaking it in warm water. Pain radiates up into her elbow. Patient states that she lopez Related Data Home Medications Medication Instructions Recorded Confirmed insulin glargine 100 unit/mL (3 30 unit subcut HS 09/08/20 01/19/21 mL) subcutaneous pen (Lantus Solostar U-100 Insulin) insulin lispro 100 unit/mL 6 - 8 unit subcut TIDWMEAL 09/08/20 01/19/21 subcutaneous pen (Humalog KwikPen (U-100) Insulin) [facility] 09/11/21 Allergies Allergy/AdvReac Type Severity Reaction Status Date / Time No Known Allergies Allergy Unknown Verified 06/13/22 23:27 Review of Systems Review of Systems: ROS unremarkable except for noted in HPI PMFSH Past Medical History Medical History Diabetes Obesity Smoker Social History Social History Smoking packs per day: 1 Smoking cigarettes per day: 20.0 Years smoked: 3 Smoking pack-years: 3.00 Smoking status: Former smoker Tobacco type: e-cigarettes/vaping Smoking end date: 03/12/18 Alcohol intake: current Alcohol use details: 2-3/MONTH Substance use: current Substance use type: marijuana Other substance usage details: SMOKE Last use: 01/13/21 Living arrangements: with family Gender identity (if verbalized by the patient): Female Sexual Orientation (if Verbalized by the Patient): Straight or Heterosexual Spiritual care concerns: No Exam Narrative: GENERAL: Well-appearing, well-nourished, no physical limitations, and in no acute distress. HEAD: Normocephalic, atraumatic. EYES: Conjunctivae normal, PERRLA and EOMI. CHEST: Clear to auscultation. No respiratory distress. No wheezes rales or rhonchi. HEART: Regular rate and rhythm. No murmur heard. Normal peripheral pulses. EXTREMITIES: right index finger: paronychia noted to medial nail fold. no drainage noted SKIN: Warm, dry, no rash. No noted wounds NEURO: No focal deficits. Alert and oriented x3. MAEW. CN's II-XI intact bilaterally, normal gait PSYCH: Cooperative. Normal mood and affect. Course Vital Signs Vital signs: Vital Signs Temperature 36.4 C 09/18/23 10:56 Pulse Rate 84 09/18/23 10:56 Respiratory Rate 20 09/18/23 10:56 Blood Pressure 151/107 H 09/18/23 10:56 Pulse Oximetry 98 09/18/23 10:56 Oxygen Delivery Room Air 09/18/23 10:56 Temperature 36.4 C 09/18/23 10:56 Pulse Rate 84 09/18/23 10:56 Respiratory Rate 20 09/18/23 10:56 Blood Pressure 151/107 H 09/18/23 10:56 Pulse Oximetry 98 09/18/23 10:56 Oxygen Delivery Room Air 09/18/23 10:56 Discharge Plan Discharge Clinical Impression: Paronychia Patient Disposition: Home, Self-Care Condition: Stable Instructions: Antibiotic Form, Paronychia (ED) Prescriptions: New sulfamethoxazole-trimethoprim [Bactrim DS] 800-160 mg tablet 1 tablet PO Q12H Qty: 14 0RF No Action [facility] insulin lispro [Humalog KwikPen Insulin] 100 unit/mL insulin pen 6 - 8 unit SUBCUT TIDWMEAL insulin glargine [Lantus Solostar U-100 Insulin] 100 unit/mL (3 mL) insulin pen 30 unit SUBCUT HS Follow-up/Referrals: Yoav Champagne MD [Primary Care Provider] - Time of Disposition: 11:26
== END 2023-09-18 11:44 | disposition home or self-care (01) ==
LOC: ANHED 11:37
PROVIDERS: Emergency Provider Nurse Practitioner Family; PCP Obstetrics & Gynecology
DX: L03.011 Cellulitis of right finger (principal); E11.9 Type 2 diabetes mellitus without complications; E66.9 Obesity, unspecified; Z68.41 Body mass index [BMI] 40.0-44.9, adult; Z87.891 Personal history of nicotine dependence; Z79.4 Long term (current) use of insulin
CPT/HCPCS: 99283

== ENCOUNTER 2023-11-13 14:44 | Emergency (ER) | payer OTHER, SELFPAY ==
[2023-11-13 14:45] VITALS: BP 148/97; PULSE 101; RESP 18; TEMP 36.9; O2SAT 99
[2023-11-13 15:03] LABS: Glucose Point of Care 424 mg/dl (65-105)
[2023-11-13] MEDS: LIDOCAINE HCL 2% GEL UROJET 10 ML PKG MUCOUS MEM (15:09)
[2023-11-13] MEDS: FLUCONAZOLE 150 MG TABLET PO (15:09)
--- NOTE | 2023-11-13 15:17 | ED.FEMALEGU ---
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 Related Data Home Medications Medication Instructions Recorded Confirmed insulin glargine 100 unit/mL (3 30 unit subcut HS 09/08/20 01/19/21 mL) subcutaneous pen (Lantus Solostar U-100 Insulin) insulin lispro 100 unit/mL 6 - 8 unit subcut TIDWMEAL 09/08/20 01/19/21 subcutaneous pen (Humalog KwikPen (U-100) Insulin) [facility] 09/11/21 Allergies Allergy/AdvReac Type Severity Reaction Status Date / Time No Known Allergies Allergy Unknown Verified 06/13/22 23:27 Review of Systems Review of Systems: All systems reviewed & are unremarkable except as noted in HPI and below PMFSH Past Medical History Medical History Diabetes Obesity Smoker Social History Social History Smoking packs per day: 1 Smoking cigarettes per day: 20.0 Years smoked: 3 Smoking pack-years: 3.00 Smoking status: Former smoker Tobacco type: e-cigarettes/vaping Smoking end date: 03/12/18 Alcohol intake: current Alcohol use details: 2-3/MONTH Substance use: current Substance use type: marijuana Other substance usage details: SMOKE Last use: 01/13/21 Living arrangements: with family Gender identity (if verbalized by the patient): Female Sexual Orientation (if Verbalized by the Patient): Straight or Heterosexual Spiritual care concerns: No Exam Narrative: EXAMINATION OF ORGAN SYSTEMS/BODY AREAS: Constitutional: Vital signs per nursing GENERAL:[No acute distress, non-toxic appearing.] HEAD: Normal with no signs of head trauma. EYES: EOMI, conjunctiva normal ENT: Hearing grossly intact LUNGS: Nonlabored breathing. HEART: [Regular rate and rhythm] ABD: [Soft], [nontender to palpation] : (with sole buffer) whitish thick discharge with redness and discomfort to vulva/vagina EXT: Normal range of motion SKIN: [No rashes or lesions.] NEURO: [Alert and oriented x 3. No gross focal sensory or strength deficits.] PSYCH: Normal affect Course Vital Signs Vital signs: Vital Signs Temperature 98.5 F 11/13/23 14:45 Pulse Rate 101 H 11/13/23 14:45 Respiratory Rate 18 11/13/23 14:45 Blood Pressure 148/97 H 11/13/23 14:45 Pulse Oximetry 99 11/13/23 14:45 Oxygen Delivery Room Air 11/13/23 14:45 Temperature 98.5 F 11/13/23 14:45 Pulse Rate 72 11/13/23 16:25 Respiratory Rate 18 11/13/23 16:25 Blood Pressure 148/97 H 11/13/23 14:45 Pulse Oximetry 98 11/13/23 16:25 Oxygen Delivery Room Air 11/13/23 14:45 MDM - Female Genitourinary MDM Narrative Medical decision making narrative: 27F out of insulin p/w weeks of worsening yeast infection and irritation now it hurts severely to void. patient like to have indwelling Giordano catheter placed for comfort so that she can urinate without pain his otherwise she will not be able urinate, she is agreeable to the risks and benefits of this, Giordano placed, she will be started on fluconazole for her yeast infection, and I did refill her insulin until she can get into see another doctor. No ketones on urine so no DKA. She is given a dose of insulin here with improvement in her blood sugar. I have let her know she can return for any further issues and patient agreeable to this plan. Lab Data Labs: Lab Results 11/13/23 11/13/23 11/13/23 Range/Units 14:53 15:00 16:26 POC Capillary Glucose 424 H 393 H (65-105) mg/dl Urine Color Yellow (Yellow) Urine Appearance Clear (Clear) Urine pH 6.5 (5.0-9.0) Ur Specif
[2023-11-13 15:19] LABS: Add Urine Microscopic? YES; Appearance Urine Clear (Clear); Bacteria Urine None Seen /hpf; Bilirubin Urine Negative (Negative); Blood Urine 3+ (Negative); Color Urine Yellow (Yellow); Glucose Urine UA 3+ mg/dL (Negative); Ketones Urine Negative (Negative); Leukocyte Esterase Ur Negative LEU/UL (Negative); Nitrate Urine Negative (Negative); Non Pathogenic Casts 0-2; Protein Urine Negative (Negative); RBC Urine >100 /hpf (0-2); Specific Grav Ur > 1.045 (1.001-1.035); Squamous Epithelial Cell Urine None Seen /hpf (Few); WBC Urine 0-5 /hpf (0-3); pH Urine 6.5 (5.0-9.0)
[2023-11-13] MEDS: INSULIN HUMAN REGULAR (*BKC) 100 UNITS/ML 10 UNITS SUB-Q (15:20)
[2023-11-13 16:25] VITALS: PULSE 72; RESP 18; O2SAT 98
[2023-11-13 16:30] LABS: Glucose Point of Care 393 mg/dl (65-105)
--- NOTE | 2023-11-13 17:13 | PC.NURSE ---
ATTEMPTED TO CALL PT'S MOM, RODOLFO AND PT'S GRANDMA, BRIGHT ; NO ANSWER FROM EITHER NUMBER.
== END 2023-11-13 17:20 | disposition home or self-care (01) ==
LOC: ANHED 16:10
PROVIDERS: Emergency Provider Emergency Medicine; PCP Obstetrics & Gynecology
DX: E11.65 Type 2 diabetes mellitus with hyperglycemia (principal); T38.3X6A Underdosing of insulin and oral hypoglycemic [antidiabetic] drugs, initial encounter; Z91.120 Patient's intentional underdosing of medication regimen due to financial hardship; Z79.4 Long term (current) use of insulin
CPT/HCPCS: 51702; 51705; 81001; 82948; 99283; A9270; J1815

== ENCOUNTER 2023-11-21 16:01 | Emergency (ER) | payer OTHER, SELFPAY ==
[2023-11-21 16:03] VITALS: BP 138/89; PULSE 82; RESP 14; TEMP 36.4; O2SAT 99
--- NOTE | 2023-11-21 16:29 | ED.FEMALEGU ---
HPI - Female Genitourinary General Chief complaint: Urogenital-Female Stated complaint: wants cath taken out Time Seen by Provider: 11/21/23 16:08 Source: patient Mode of arrival: ambulatory Limitations: no limitations History of Present Illness HPI Narrative: This is a 27 year old female that presents to the ER for Rodrigez catheter removal. She had a catheter placed one week ago as she had a yeast infection that was so severe she was having difficulty urinating. She has no complaints currently otherwise. Would like the catheter removed. Related Data Home Medications Medication Instructions Recorded Confirmed insulin glargine 100 unit/mL (3 30 unit subcut HS 09/08/20 01/19/21 mL) subcutaneous pen (Lantus Solostar U-100 Insulin) insulin lispro 100 unit/mL 6 - 8 unit subcut TIDWMEAL 09/08/20 01/19/21 subcutaneous pen (Humalog KwikPen (U-100) Insulin) [facility] 09/11/21 Allergies Allergy/AdvReac Type Severity Reaction Status Date / Time No Known Allergies Allergy Unknown Verified 06/13/22 23:27 Review of Systems Review of Systems: CONSTITUTIONAL: Denies fever GASTROINTESTINAL: Denies abdominal pain, nausea, vomiting GENITOURINARY: Denies hematuria. All systems reviewed & are unremarkable except as noted in HPI and below PMFSH Past Medical History Medical History Diabetes Obesity Smoker Social History Social History Smoking packs per day: 1 Smoking cigarettes per day: 20.0 Years smoked: 3 Smoking pack-years: 3.00 Smoking status: Former smoker Tobacco type: e-cigarettes/vaping Smoking end date: 03/12/18 Alcohol intake: current Alcohol use details: 2-3/MONTH Substance use: current Substance use type: marijuana Other substance usage details: SMOKE Last use: 01/13/21 Living arrangements: with family Gender identity (if verbalized by the patient): Female Sexual Orientation (if Verbalized by the Patient): Straight or Heterosexual Spiritual care concerns: No Exam Narrative: GENERAL: Well-appearing, well-nourished, and in no acute distress. HEAD: Normocephalic, atraumatic. EYES: EOMI. EXTREMITIES: Normal range of motion. No edema. SKIN: Warm, dry, no rash. NEURO: No focal deficits. Alert and oriented x3. PSYCH: Normal mood and affect FEMALE GENITAL: Rodrigez catheter draining clear, yellow urine. Course Vital Signs Vital signs: Vital Signs Temperature 97.6 F 11/21/23 16:03 Pulse Rate 82 11/21/23 16:03 Respiratory Rate 14 11/21/23 16:03 Blood Pressure 138/89 11/21/23 16:03 Pulse Oximetry 99 11/21/23 16:03 Oxygen Delivery Room Air 11/21/23 16:03 Temperature 97.6 F 11/21/23 16:03 Pulse Rate 82 11/21/23 16:03 Respiratory Rate 14 11/21/23 16:03 Blood Pressure 138/89 11/21/23 16:03 Pulse Oximetry 99 11/21/23 16:03 Oxygen Delivery Room Air 11/21/23 16:03 MDM - Female Genitourinary MDM Narrative Medical decision making narrative: Patient presents to the ER for rodrigez catheter removal. This was removed without issue. Patient able to void on her own after. She has no other complaints. Critical Care Time Critical Care Time Critical Care Time: No Discharge Plan Discharge Clinical Impression: Encounter for Rodrigez catheter removal Patient Disposition: Home, Self-Care Condition: Stable Additional Instructions: Return to the ER if you experience fever, you are unable to urinate, abdominal pain with nausea and vomiting, you are unable to keep down liquids or solids, pain or burning with urination, blood in the urine or any other symptoms that are concerning to you Follow up with your primary care doctor as needed Prescriptions: No Action [facility] insulin glargine [Lantus U-100 Insulin] 100 unit/mL solution 30 unit subcut BID 30 Days Qty: 18 0RF insulin lispro [Humalog U-100 Ins
== END 2023-11-21 16:35 | disposition home or self-care (01) ==
LOC: ANHED 16:36
PROVIDERS: Emergency Provider Physician Assistant; PCP Obstetrics & Gynecology
DX: Z46.6 Encounter for fitting and adjustment of urinary device (principal); E11.9 Type 2 diabetes mellitus without complications; Z79.4 Long term (current) use of insulin; E66.9 Obesity, unspecified; Z68.41 Body mass index [BMI] 40.0-44.9, adult; Z87.891 Personal history of nicotine dependence
CPT/HCPCS: 99282